=== PATIENT | male | born 1955 | race Caucasian/White ===

== ENCOUNTER 2018-05-29 22:22 | Emergency (ER) | payer OTHER ==
[~2018-05-29] VITALS: Ht 188 cm; Wt 108.2 kg
[2018-05-29 23:03] LABS: EOS # 0.3 (0.04-0.40); EOS % 3.5 % (0.0-4.0); HEMATOCRIT 33.8 % (42.0-52.0); HEMOGLOBIN 11.2 g/dL (13.5-18.0); LYMPH# 1.7 (1.50-4.00); MEAN CELL VOLUME 91 fl (78-100); MEAN CORPUSCULAR HEMOGLOBIN 30 pg (27-31); MEAN CORPUSCULAR HGB CONC 33 g/dL (33-37); MONO # 0.9 (0.20-0.80); NEU # 6.4 (1.40-6.50); PLATELET COUNT 143 K/mm3 (130-400); RED BLOOD COUNT 3.71 M/mm3 (4.20-5.60); WHITE BLOOD COUNT 9.4 K/mm3 (4.8-10.8)
[2018-05-29 23:07] LABS: MEAN PLATELET VOLUME 12.3 fl (7.4-10.4)
[2018-05-29 23:15] LABS: ALBUMIN 3.1 g/dL (3.5-5.0); CALCIUM 8.1 mg/dL (8.4-10.2); POTASSIUM 3.8 mmol/L (3.6-5.0); TOTAL BILIRUBIN 0.4 mg/dL (0.2-1.3)
[2018-05-29 23:26] LABS: TROPONIN-I < 0.03 ng/mL (0.00-0.06)
[2018-05-30 00:10] VITALS: BP 144/84
[2018-05-30] MEDS ORDERED: CLOPIDOGREL PO (00:32)
[2018-05-30] MEDS ORDERED: ASPIRIN 32325 MG/TAB PO (00:32)
== END 2018-05-29 23:20 | disposition short-term general hospital (02) ==
LOC: ED 22:22
PROVIDERS: Nurse Practitioner Family
DX: I21.19 ST elevation (STEMI) myocardial infarction involving other coronary artery of inferior wall (principal); I25.2 Old myocardial infarction; E11.22 Type 2 diabetes mellitus with diabetic chronic kidney disease; I12.0 Hypertensive chronic kidney disease with stage 5 chronic kidney disease or end stage renal disease; N18.6 End stage renal disease; Z99.2 Dependence on renal dialysis; Z79.4 Long term (current) use of insulin; E78.5 Hyperlipidemia, unspecified; Z95.5 Presence of coronary angioplasty implant and graft; K86.1 Other chronic pancreatitis; Z79.82 Long term (current) use of aspirin; Z79.02 Long term (current) use of antithrombotics/antiplatelets
CPT/HCPCS: J1650; J2405; J7030